=== PATIENT | male | born 1945 | race Caucasian/White ===

== ENCOUNTER 2022-10-16 10:57 | Outpatient (CLI) | payer MEDICARE, OTHER ==
--- NOTE | 2022-10-16 14:04 | XRAY Report ---
PROCEDURE: Foot 2 View LT INDICATIONS: LEFT FOOT PAIN TECHNIQUE: 2 views of the foot were acquired. COMPARISON: None. FINDINGS: Bones: No acute fractures or dislocations. No suspicious bony lesions. Moderate degenerative change s are seen at the 1st metatarsophalangeal joint. Degenerative changes are seen in the interphalangeal joints of the toes. Tiny plantar calcaneal enthesophyte. Soft tissues: No suspicious soft tissue calcifications or masses. 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 Reviewed by: Cody Brown MD on 10/16/2022 2:03 PM PDT Approved by: Cody Brown MD on 10/16/2022 2:03 PM PDT Station ID: [id number]
== END 2022-10-16 10:58 | disposition home or self-care (01) ==
LOC: DI 10:57
PROVIDERS: ATTEND Family Medicine
DX: M19.072 Primary osteoarthritis, left ankle and foot (principal)